=== PATIENT | female | born 1985 | race Caucasian/White ===

== ENCOUNTER 2019-05-01 03:04 | Emergency (ER) | payer MEDICAID ==
[~2019-05-01] VITALS: Ht 160 cm; Wt 66.7 kg
[2019-05-01 03:09] VITALS: Ht 160 cm; Wt 66.7 kg
[2019-05-01 04:17] VITALS: BP 114/73
== END 2019-05-01 04:17 | disposition home or self-care (01) ==
LOC: ED 03:04
DX: J20.9 Acute bronchitis, unspecified (principal)
CPT/HCPCS: 87804; J1885; Q0092

== ENCOUNTER 2019-05-07 07:48 | Emergency (ER) | payer MEDICAID ==
[~2019-05-07] VITALS: Ht 157.5 cm; Wt 62.1 kg
[2019-05-07 07:51] VITALS: Ht 157.5 cm; Wt 62.1 kg
[2019-05-07 09:58] VITALS: BP 141/90
== END 2019-05-07 09:58 | disposition home or self-care (01) ==
LOC: ED 07:48
DX: J40 Bronchitis, not specified as acute or chronic (principal)